=== PATIENT | female | born 1990 | race African-American/Black ===

== ENCOUNTER 2017-03-20 03:17 | Outpatient (CLI) | payer OTHER ==
[2017-03-20 03:33] VITALS: BP 133/88
== END 2017-03-20 06:00 | disposition home or self-care (01) ==
LOC: TRG 03:17
PROVIDERS: ATTEND Obstetrics & Gynecology
DX: O46.92 Antepartum hemorrhage, unspecified, second trimester (principal); O62.9 Abnormality of forces of labor, unspecified; O48.0 Post-term pregnancy; Z3A.40 40 weeks gestation of pregnancy
CPT/HCPCS: 59025